=== PATIENT | female | born 1995 | race Two or more races ===

== ENCOUNTER 2022-05-01 05:20 | Inpatient (IN) | payer OTHER ==
[~2022-05-01] VITALS: Ht 162.6 cm; Wt 3.2 kg
[~2022-05-01 05:20] MED LIST: PRENA1 CHEW TA1.4 MG PO
[2022-05-01] MEDS ORDERED: PRENATAL TABLE1 EAC1 (06:41)
[2022-05-01] MEDS ORDERED: VALACYCLOVIR1000 MG (08:54)
[2022-05-04] MEDS ORDERED: SENOKOT8.6 M1 PO (06:58)
[2022-05-04] MEDS ORDERED: SIMETHICONE125 M1 PO (06:58)
[2022-05-04] MEDS ORDERED: IBUPROFEN800 MG PO (06:58)
== END 2022-05-04 13:02 | disposition home or self-care (01) | DRG 788 ==
LOC: LDR 05:20 → OB/GYN 05:20 → LDR 05:20 → O/R 19:04 → OB/GYN 19:57
PROVIDERS: ADMIT Obstetrics & Gynecology; ATTEND Obstetrics & Gynecology
PROC: 3E033VJ Introduction of Other Hormone into Peripheral Vein, Percutaneous Approach (ICD-10-PCS; 2022-05-01)
PROC: 3E0P7VZ Introduction of Hormone into Female Reproductive, Via Natural or Artificial Opening (ICD-10-PCS; 2022-05-01)
PROC: 4A1HXCZ Monitoring of Products of Conception, Cardiac Rate, External Approach (ICD-10-PCS; 2022-05-01)
PROC: 10D00Z1 Extraction of Products of Conception, Low, Open Approach (ICD-10-PCS; principal; 2022-05-01 18:15)
DX: O61.0 Failed medical induction of labor (principal); O48.0 Post-term pregnancy; Z20.822 Contact with and (suspected) exposure to COVID-19; Z3A.41 41 weeks gestation of pregnancy; Z37.0 Single live birth

== ENCOUNTER 2022-10-20 13:49 | Inpatient (IN) | payer OTHER ==
[~2022-10-20] VITALS: Ht 162.6 cm; Wt 64.4 kg
[~2022-10-20 13:49] MED LIST changes: +IBUPROFEN800 MG PO; +PRENATAL TABLE1 EAC1; +SENOKOT8.6 M1 PO; +SIMETHICONE125 M1 PO; +VALACYCLOVIR1000 MG
[2022-10-23] MEDS ORDERED: VALACYCLOVIR1000 MG (11:27)
== END 2022-10-23 13:15 | disposition left against medical advice (07) | DRG 373 ==
LOC: ER 13:49 → MEDJ 21:47
PROVIDERS: ADMIT Internal Medicine; ATTEND Internal Medicine
PROC: BW21YZZ Computerized Tomography (CT Scan) of Abdomen and Pelvis using Other Contrast (ICD-10-PCS; principal; 2022-10-20)
DX: K35.890 Other acute appendicitis without perforation or gangrene (principal); Z20.822 Contact with and (suspected) exposure to COVID-19